=== PATIENT | female | born 1935 | race Caucasian/White ===

== ENCOUNTER 2016-09-30 21:46 | Emergency (ER) | payer MEDICARE ==
[2016-09-30 21:51] VITALS: TEMP 97.6
[2016-09-30 22:11] LABS: HEMATOCRIT 39.8 % (34.0-47.0); MEAN CELL VOLUME 86.9 fL (81.0-99.0); MEAN CORPUSCULAR HEMOGLOBIN 28.7 pg (27.0-31.0); MEAN PLATELET VOLUME 8.8 fL (7.2-11.7); RED CELL DISTRIBUTION WIDTH 14.8 % (11.5-14.5); WHITE BLOOD COUNT 7.4 K/uL (4.8-10.8)
[2016-09-30 22:23] LABS: CHLORIDE 99 mmol/L (98-107); POTASSIUM 3.7 mmol/L (3.6-5.2); SODIUM 135 mmol/L (132-148)
[2016-09-30 22:25] LABS: BILIRUBIN,TOTAL 0.6 mg/dL (0.2-1.3); CARBON DIOXIDE 25 mmol/L (22-30); GFR AFRICAN-AMERICAN > 60
[2016-09-30 22:26] LABS: ALB/GLOB RATIO 1.4 (1.0-2.1); ALKALINE PHOSPHATASE 91 U/L (38-126); ALT/SGPT 29 U/L (9-52); AST/SGOT 21 U/L (14-36); BLOOD UREA NITROGEN 14 mg/dL (7-17); CALCIUM 9.1 mg/dl (8.6-10.4); GLUCOSE,RANDOM 127 mg/dL (65-105); TOTAL PROTEIN 6.7 g/dL (6.3-8.3)
[2016-09-30] MEDS ORDERED: Sodium Chloride 0.9% 500 ML IV ONE (22:50)
[2016-09-30] MEDS ORDERED: Sodium Chloride 0.9% 1,000 ML ONE (23:40)
--- NOTE | 2016-09-30 23:48 | CT ---
EXAM: CT Head Without Intravenous Contrast CLINICAL HISTORY: 81 years old, female; Signs and symptoms; Dizziness and other: Vertigo; Additional info: Vertigo/n/v/, ? cerebellar TECHNIQUE: Axial computed tomography images of the head/brain without intravenous contrast. All CT scans at this facility use one or more dose reduction techniques, viz.: automated exposure control; ma/kV adjustment per patient size (including targeted exams where dose is matched to indication; i.e. head); or iterative reconstruction technique. COMPARISON: No relevant prior studies available. FINDINGS: Brain: No acute intracranial hemorrhage. Age-appropriate periventricular white matter disease. No edema. Ventricles: Age-appropriate ventriculomegaly. Bones: No acute displaced fracture. Sinuses: Unremarkable as visualized. No acute sinusitis. Mastoid air cells: Unremarkable as visualized. No mastoid effusion. IMPRESSION: No acute intracranial hemorrhage, or suspicious mass effect.
[2016-09-30 23:51] VITALS: O2SAT 97
--- NOTE | 2016-10-01 00:05 | C.PDOC ---
History Of Present Illness 81 y/o female c/o typical vertigo associated with nausea and vomiting for 1 day. Vertigo not related to head position. Denies fever, chills, weakness, numbness, or any other complaints. Time Seen by Provider: 09/30/16 22:39 Chief Complaint (Nursing): GI Problem History Per: Patient History/Exam Limitations: None Onset/Duration Of Symptoms: Days Current Symptoms Are (Timing): Still Present Usual Baseline: Alert Oriented Exacerbating Factor(s): Unknown Severity: Mild Recent travel outside of the [place]: No Additional History Per: Patient Associated Symptoms: Vomiting Past Medical History Reviewed: Historical Data, Nursing Documentation, Vital Signs Vital Signs: Last Vital Signs Temp 97.6 F 09/30/16 21:48 Pulse 50 L 09/30/16 23:30 Resp 18 09/30/16 23:30 BP 128/64 09/30/16 23:30 Pulse Ox 97 10/01/16 00:07 - Medical History PMH: Asthma, HTN, Hypercholesterolemia, Hypothyroidism Surgical History: Tonsillectomy Family History: States: Unknown Family Hx - Social History Hx Tobacco Use: No Hx Alcohol Use: No Hx Substance Use: No - Immunization History Hx Tetanus Toxoid Vaccination: No Hx Influenza Vaccination: Yes (2014) Hx Pneumococcal Vaccination: No Review Of Systems Except As Marked, All Systems Reviewed And Found Negative. Constitutional: Negative for: Fever, Chills Gastrointestinal: Positive for: Nausea, Vomiting Neurological: Positive for: Other (Vertigo). Negative for: Weakness, Numbness Physical Exam - Physical Exam Appears: Non-toxic, No Acute Distress, Other (Deaf (baseline)) Skin: Warm, Dry Head: Atraumatic, Normacephalic Eye(s): bilateral: Normal Inspection, PERRL, EOMI Cardiovascular: Rhythm Regular Respiratory: Normal Breath Sounds, No Rales, No Rhonchi, No Wheezing Gastrointestinal/Abdominal: Soft, No Tenderness Neurological/Psych: Oriented x3, Normal Speech, Normal Cognition, Normal Motor, Other (No vertigo with head or eye movement) ED Course And Treatment - Laboratory Results Result Diagrams: 09/30/16 22:05 09/30/16 22:05 Lab Interpretation: Normal ECG: Interpreted By Me ECG Rhythm: Sinus Rhythm ECG Interpretation: Normal Rate From EC O2 Sat by Pulse Oximetry: 97 (RA) Pulse Ox Interpretation: Normal - Radiology CXR: Interpreted by Me CXR Interpretation: Yes: No Acute Disease - Other Rad head CT X-Ray: Read By Radiologist (no acute findings) Progress Note: pepcid, meclizine, zofran, IVF Reevaluation Time: 00:09 Reassessment Condition: Improved (feels much better wants d/c home.) Medical Decision Making Medical Decision Making: Impression: 81 y/o female c/o typical vertigo associated with nausea and vomiting for 1 day. Plans: * CT Head w/o * UA * EKG * Blood work up * CXR * Antivert * Zofran * Protonix * IV fluids LOW susp of CVA/cerebellar infarct w normal labs and head CT and h/o and presentation w typical vertigo improved with normal treatment, ok for d/c home. Disposition Doctor Will See Patient In The: Office Counseled Patient/Family Regarding: Studies Performed, Diagnosis - Disposition Disposition: HOME/ ROUTINE Disposition Time: 00:10 Condition: GOOD Forms: [facility] (I[place]ic) - Clinical Impression Clinical Impression: Vertigo, Vomiting - Scribe Statement The provider has reviewed the documentation as recorded by the Scribe Anabell gonzalez All medical record entries made by the Scribe were at my direction and personally dictated by me. I have reviewed the chart and agree that the record accurately reflects my personal performance of the history, physical exam, medical decision making, and the department course for this patient. I have also personally directed, reviewed, and agree with the discharge instructions and disposition.
[2016-10-01 00:22] VITALS: BP 130/62; PULSE 74; RESP 14
--- NOTE | 2016-10-01 10:01 | RAD ---
HISTORY: adm COMPARISON: Chest radiograph 10/31/2014 FINDINGS: LUNGS: No definitive infiltrate is appreciate however there is some crowding of bronchovascular markings at the left base inferiorly. PLEURA: No significant pleural effusion identified, no pneumothorax apparent. CARDIOVASCULAR: Normal. OSSEOUS STRUCTURES: No significant abnormalities. VISUALIZED UPPER ABDOMEN: Normal. OTHER FINDINGS: None. IMPRESSION: Chronic of the bronchovascular markings in the left base. No definite acute infiltrate or pleural effusion identified bilaterally.
--- NOTE | 2016-10-01 11:47 | CARD ---
APPROVED REPORT EKG Measurement Heart [id number] <Conclusion> Normal sinus rhythm Incomplete right bundle branch block Left anterior fascicular block Abnormal ECG
== END 2016-10-01 00:12 | disposition home or self-care (01) ==
LOC: C.ER 21:46
DX: R42 Dizziness and giddiness (principal); R11.10 Vomiting, unspecified
CPT/HCPCS: 70450; 71010; 80053; 85027; 85610; 85730; 93005; 96374; 96375; 99285; C9113; J2405; J7040